=== PATIENT | female | born 1990 | race African-American/Black ===

== ENCOUNTER 2022-05-23 12:23 | Emergency (ER) | payer OTHER ==
[2022-05-23 12:38] VITALS: BP 130/68; PULSE 78; RESP 18; BMI 27.4
== END 2022-05-23 13:06 | disposition home or self-care (01) ==
LOC: FER 12:23
DX: T59.891A Toxic effect of other specified gases, fumes and vapors, accidental (unintentional), initial encounter (principal); J68.9 Unspecified respiratory condition due to chemicals, gases, fumes and vapors; R06.02 Shortness of breath; Y99.0 Civilian activity done for income or pay
CPT/HCPCS: 99282-25

== ENCOUNTER 2022-08-27 12:14 | Emergency (ER) | payer OTHER ==
[2022-08-27 12:25] VITALS: BP 125/77; PULSE 80; RESP 16; TEMP 97.8; BMI 29.2
== END 2022-08-27 13:15 | disposition home or self-care (01) ==
LOC: FER 12:14
DX: S80.02XA Contusion of left knee, initial encounter (principal); W22.8XXA Striking against or struck by other objects, initial encounter
CPT/HCPCS: 73562-TC-LT-FY; 99283-25

== ENCOUNTER 2022-09-16 18:25 | Emergency (ER) | payer OTHER ==
[2022-09-16] MEDS ORDERED: LORATADINE 10 MG TABLET PO ONE (18:41)
[2022-09-16] MEDS ORDERED: ALBUTEROL SO4 HFA INHALER IH ONE ×2 (18:48→19:00)
[2022-09-16] MEDS ORDERED: ALBUTEROL SO4 2.5/IPRATROPIUM 0.5 INH SOL 3 ML VIAL.NEB. NEB ONE ×3 (18:50→19:00)
[2022-09-16 18:51] VITALS: BP 124/74; PULSE 89; RESP 18; TEMP 100.3; BMI 31.8
[2022-09-16] MEDS ORDERED: LORATADINE 10 MG TABLET ONE (19:00)
[2022-09-16] MEDS ORDERED: ACETAMINOPHEN 325 MG TABLET (FP) PO ONE (20:31)
[2022-09-16] MEDS ORDERED: ACETAMINOPHEN 325 MG TABLET (FP) ONE (20:43)
== END 2022-09-16 20:47 | disposition home or self-care (01) ==
LOC: FER 18:25
PROC: 3E0F7GC Introduction of Other Therapeutic Substance into Respiratory Tract, Via Natural or Artificial Opening (ICD-10-PCS; principal; 2022-09-16)
DX: R05.9 Cough, unspecified (principal); R21 Rash and other nonspecific skin eruption; L29.9 Pruritus, unspecified
CPT/HCPCS: 71046-TC-FY; 99284-25